=== PATIENT | female | born 1955 | race African-American/Black ===

== ENCOUNTER 2021-04-01 08:16 | Day surgery (SDC) | payer OTHER ==
[2021-03-25 15:58] VITALS: BMI 41.1
[2021-04-01 10:07] VITALS: TEMP 98.1
[2021-04-01 10:27] VITALS: BP 134/80; PULSE 82
== END 2021-04-01 10:50 | disposition home or self-care (01) ==
LOC: FASU-ENDO 08:16
PROVIDERS: ATTEND Internal Medicine Gastroenterology
PROC: 0DJD8ZZ Inspection of Lower Intestinal Tract, Via Natural or Artificial Opening Endoscopic (ICD-10-PCS; principal; 2021-04-01 09:34)
DX: Z86.010 Personal history of colon polyps (principal); K57.30 Diverticulosis of large intestine without perforation or abscess without bleeding